=== PATIENT | female | born 1945 | race Caucasian/White ===

== ENCOUNTER 2019-06-10 21:47 | Emergency (ER) | payer MEDICARE, OTHER ==
[~2019-06-10] VITALS: Ht 170.2 cm; Wt 57.1 kg
[~2019-06-10 21:47] MED LIST: BIOTIN2500 MCG PO; CITRACAL + BON1 EACH PO; HYDROCHLOROTHIA25 MG PO; K-SOL20 MEQ/15 PO; LISINOPRIL-HCT1 EAC1 PO; MULTI VITAMIN1 EACH PO; NORCO 5-325 TA1 EACH PO; POTASSIUM AZELAO1 ML MISC; ULTRAM50 MG PO; VITAMIN C500 M1 PO; ZOFRAN4 MG SL
--- OUTSIDE RECORDS SUMMARY | 2019-06-10 21:50 | XMS ---
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 E.D. VISIT COUNT (12 MO.) 1 HAZEL Waggoner TOTAL 1 NOTE: Visits indicate total known visits. ED/UCC VISIT TRACKING (12 MO.) 06/10/2019 21:47 [facility] TYPE: Emergency COMPLAINT: - POST OP BLEEDING INPATIENT VISIT TRACKING (12 MO.) No inpatient visits to display in this time frame [email or web address]
== END 2019-06-10 23:37 | disposition home or self-care (01) ==
LOC: ED 21:47
DX: M96.830 Postprocedural hemorrhage of a musculoskeletal structure following a musculoskeletal system procedure (principal); I10 Essential (primary) hypertension; Z91.012 Allergy to eggs; Z79.899 Other long term (current) drug therapy
CPT/HCPCS: 99283

== ENCOUNTER 2021-02-27 13:55 | Emergency (ER) | payer MEDICARE, OTHER ==
[~2021-02-27] VITALS: Ht 170.2 cm; Wt 57.1 kg
[2021-02-27] MEDS ORDERED: ONDANSETRON ODT8 MG PO (18:28)
== END 2021-02-27 18:39 | disposition home or self-care (01) ==
LOC: ED 13:55
DX: U07.1 COVID-19 (principal); I10 Essential (primary) hypertension; Z87.891 Personal history of nicotine dependence; Z79.899 Other long term (current) drug therapy; Z91.012 Allergy to eggs
CPT/HCPCS: 80053; 85025; 96374; 99283-25; C9803; J2405; J7030; J7040; M0243; Q0244; U0003